=== PATIENT | female | born 1975 | race Caucasian/White ===

== ENCOUNTER 2022-10-02 05:42 | Emergency (ER) | payer SELFPAY ==
--- NOTE | ~2022-10-02 | XR_ITS ---
Right foot Technique: AP and lateral views were obtained. Clinical History: Pain Findings: No acute fracture or dislocation is seen. Osseous alignment is anatomic. Joint spaces are p reserved without erosive or degenerative change. Soft tissues are unremarkable. Impression: Unremarkable right foot radiographs. Reviewed, dictated and finalized at location . Impression: Unremarkable right foot radiographs.
[2022-10-02 05:48] VITALS: BP 107/71; PULSE 84; RESP 16; O2SAT 98
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
[2022-10-02] MEDS: ACETAMINOPHEN 500 MG TABLET 1000 MG PO (06:06)
== END 2022-10-02 06:37 | disposition home or self-care (01) ==
PROVIDERS: Emergency Provider Emergency Medicine
DX: S93.601A Unspecified sprain of right foot, initial encounter (principal); W22.8XXA Striking against or struck by other objects, initial encounter
CPT/HCPCS: 73620; 99283

== ENCOUNTER 2023-03-24 21:07 | Emergency (ER) | payer OTHER, SELFPAY ==
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
[2023-03-24 21:33] VITALS: BP 105/78; PULSE 97; RESP 16; TEMP 36.4; O2SAT 97
[2023-03-24 22:19] LABS: Influenza A QL RT-PCR Negative (Negative); Influenza B QL RT-PCR Negative (Negative); SARS-CoV-2 RNA PCR Negative (Negative)
[2023-03-24 22:21] LABS: RSV RNA, RT-PCR Negative (Negative)
[2023-03-24 22:39] VITALS: BP 105/78; PULSE 97; RESP 16; TEMP 36.4; O2SAT 97
== END 2023-03-24 22:40 | disposition home or self-care (01) ==
PROVIDERS: Emergency Provider Internal Medicine Critical Care Medicine; PCP Family Medicine
DX: S61.032A Puncture wound without foreign body of left thumb without damage to nail, initial encounter (principal); Z20.822 Contact with and (suspected) exposure to COVID-19; W26.0XXA Contact with knife, initial encounter
CPT/HCPCS: 12001; 87637; 99283

== ENCOUNTER 2024-05-06 11:57 | Emergency (ER) | payer OTHER, SELFPAY ==
[2024-05-06 11:59] VITALS: BP 144/86; PULSE 71; RESP 18; TEMP 36.6; O2SAT 99
[2024-05-06 12:02] VITALS: BP 144/86; PULSE 71; RESP 18; TEMP 36.6; O2SAT 99
--- NOTE | 2024-05-06 12:10 | ED.SKABFB ---
HPI - Skin/Abscess/Foreign Bdy General Chief complaint: Skin/Abscess/Foreign Body Stated complaint: rash on face area Time Seen by Provider: 05/06/24 12:03 Source: patient and family Mode of arrival: ambulatory Limitations: no limitations History of Present Illness HPI narrative: This is a 49-year-old female with history of hepatitis-C presents with some rash on her lower facial area around her mouth mainly on the left side erythematous with some vesicles currently no drainage does have some swollen tender left submandibular glands with some low-grade fever and chills with no shortness of breath no chest pain no not affecting the the eyes. complaint: rash Onset (ago): day(s) Location: face Severity: moderate Quality: aching Pain Consistency: constant Related Data Allergies Allergy/AdvReac Type Severity Reaction Status Date / Time ketorolac [From Toradol] Allergy Unknown Verified 05/06/24 12:01 tramadol Allergy Unknown Verified 03/24/23 21:33 Review of Systems Review of Systems: All systems reviewed & are unremarkable except as noted in HPI and below PMFSH Past Medical History Medical History Patient denies medical problems Surgical History Surgical History H/O section Social History Social History Social History: daily marijuana use Exam Const: General: healthy appearing and no acute distress Nutritional Appearance: well nourished Orientation/consciousness: patient oriented x3 Limitations: no limitations HENMT: Other: Has erythematous rash with vesicles on the left lower facial area Neck: Neck: normal visual inspection and lymphadenopathy Chest: Chest palpation & inspection: normal inspection of the chest Resp: Effort & Inspection: normal respiratory effort Auscultation: clear to auscultation bilaterally Cardio: Rate: regular rate Rhythm: regular rhythm Extrem: General: normal to inspection and no clubbing, cyanosis or edema Course Course Emergency Course: patient with what appears to be shingles and differential with some vesicles on erythematous base and will give a dose of acyclovir p.o. here in the emergency department send a persistent prescription to her pharmacy. Vital Signs Vital signs: Vital Signs Temperature 36.6 C 05/06/24 11:59 Pulse Rate 71 05/06/24 11:59 Respiratory Rate 18 05/06/24 11:59 Blood Pressure 144/86 H 05/06/24 11:59 Pulse Oximetry 99 05/06/24 11:59 Oxygen Delivery Room Air 05/06/24 11:59 Temperature 36.6 C 05/06/24 12:02 Pulse Rate 71 05/06/24 12:02 Respiratory Rate 18 05/06/24 12:02 Blood Pressure 144/86 H 05/06/24 12:02 Pulse Oximetry 99 05/06/24 12:02 Oxygen Delivery Room Air 05/06/24 12:02 Critical Care Time Critical Care Time Critical Care Time: No Discharge Plan Discharge Clinical Impression: Shingles Qualifiers: Herpes zoster complications: without complications Qualified Code(s): B02.9 - Zoster without complications Patient Disposition: Home, Self-Care Condition: Stable Instructions: Antibiotic Form, Shingles (ED) Additional Instructions: advised patient to take medication as prescribed and follow with primary within a week further evaluation and treatment. Prescriptions: New acyclovir 800 mg tablet 800 mg PO TID 7 Days Qty: 21 0RF Follow-up/Referrals: Neeraj Lozano M.D. [Primary Care Provider] - Time of Disposition: 12:14
[2024-05-06] MEDS: ACYCLOVIR 200 MG CAPSULE 400 MG PO (12:18)
== END 2024-05-06 12:22 | disposition home or self-care (01) ==
LOC: CHSED 12:14
PROVIDERS: Emergency Provider Emergency Medicine; PCP Family Medicine
DX: B02.9 Zoster without complications (principal)
CPT/HCPCS: 99283; A9270

== ENCOUNTER 2024-06-07 09:22 | Emergency (ER) | payer OTHER, SELFPAY ==
[2024-06-07 09:31] VITALS: BP 114/88; PULSE 110; RESP 20; TEMP 36.7; O2SAT 99
[2024-06-07 09:35] VITALS: RESP 20
--- NOTE | 2024-06-07 09:38 | ED.NEUROSD ---
HPI - Neuro Symptoms/Deficit General Chief Complaint: Overdose Stated Complaint: overdose/narcan given Source: patient and EMS Mode of arrival: ambulatory Limitations: no limitations History of Present Illness HPI Narrative: 39-year-old female with a history of methamphetamine and fentanyl abuse was brought in by EMS . she took her dose of fentanyl and amphetamine this morning and subsequently was noted to be unresponsive. Her friend gave her 3 doses of Narcan with improvement in mental status. The patient continued to have snoring respiration was altered mental status. Subsequently EMS was called who gave her IV Narcan following which she woke up without any neuro deficit. She is brought in by EMS for evaluation. Denies any focal deficit no chest pain or shortness of breath no nausea/vomiting /abdominal pain or diarrhea. Patient is afebrile. Onset (ago): hour(s) ( 1 hour ago) Last Observed Normal: 08:30 Timing confirmed by: other Location: other ( unresponsive) Relieving factors: none Context: sudden onset Associated symptoms: denies other symptoms Related Data Home Medications ?Medication ?Instructions ?Recorded ?Confirmed ?Last Taken ?Type No Home Medications 06/07/24 06/07/24 Unknown History Allergies Allergy/AdvReac Type Severity Reaction Status Date / Time ketorolac (From Toradol) Allergy Unknown Verified 06/07/24 09:32 tramadol Allergy Unknown Verified 06/07/24 09:32 Review of Systems Review of Systems: All systems reviewed & are unremarkable except as noted in HPI and below Constitutional: Constitutional: Reports as per HPI and Reports no additional constitutional complaints Eyes: Eyes: Reports as per HPI and Reports no additional eye complaints ENT: Reports system reviewed and no additional complaints, except as documented and Reports as per HPI Cardiovascular: Cardiovascular: Reports as per HPI and Reports no additional cardiovascular complaints Respiratory: Respiratory: Reports as per HPI and Reports no additional respiratory complaints Gastrointestinal: Gastrointestinal: Reports as per HPI and Reports no additional gastrointestinal complaints Genitourinary: Genitourinary: Reports no additional female genitourinary complaints and Reports as per HPI Musculoskeletal: Musculoskeletal: Reports no additional musculoskeletal complaints and Reports as per HPI Integumentary/Breasts: Skin/Breast: Reports system reviewed and no additional complaints, except as docu and Reports as per HPI Neurologic: Reports system reviewed and no additional complaints, except as documented and Reports as per HPI Comments: initially unresponsive. Currently she is alert and oriented without any focal deficits. Psychiatric: Psychiatric: Reports no additional psychiatric complaints Endocrine: Endocrine: Reports no additional endocrine complaints and Reports excessive sweating Hematologic/Lymphatic: Hematologic/Lymphatic: Reports no additional hematologic/lymphatic complaints and Reports as per HPI Allergic/Immunologic: Allergic/Immunologic: Reports no additional allergic/immunologic complaints and Reports as per HPI [facility] Past Medical History Medical History Patient denies medical problems Surgical History Surgical History H/O section Social History Social History (Updated 06/07/24 @ 09:50 by Jordan Joe MD) Social History: daily marijuana use. History of fentanyl and amphetamine abuse Substance use type: former substance user, opiates and methamphetamine Exam Narrative: tachycardic with a heart rate of 110. Blood pressure 114/88 Const: General: no acute distress Orientation/consciousness: patient oriented x3 Limitations: no limitations HENMT: Head: normal to inspection Ears: external ears normal Face/Nose/Sinus: Normal external nose present Face and sinus: normal facial exam Teeth and gingiva: abnormal tooth and associated gingiva ( extensive dental caries with gingivitis on the right lower) Throat: posterior oropharynx normal Eyes: Conjunctivae: conjunctivae normal Pupils: Equal, round and reactive pupils present EOM: EOMs intact bilaterally Direct Ophthalmoscopy: no photophobia Neck: Neck: normal visual inspection, no lymphadenopathy and no meningeal signs Chest: Chest palpation & inspection: normal inspection of the chest Resp: Effort & Inspection: normal respiratory effort Auscultation: clear to auscultation bilaterally Cardio: Rate: regular rate Rhythm: regular rhythm GI: GI Palp: Yes Soft to palpation Auscultation: normal bowel sounds Other: no tenderness / rigidity /rebound : General: Yes no CVA tenderness Back/Spine/Pelvis: Back: no CVA tenderness Skin: General skin exam: normal color Rashes: no rashes Wounds: no wounds Neuro: General: patient oriented x3, moves all extremities, no meningeal signs, no focal motor deficits and CN's II-XI intact bilaterally Cranial nerves: Yes Nystagmus not present Speech: normal speech Extrem: General: normal to inspection, no clubbing, cyanosis or edema and no pedal edema Psych: Mental Status: mental status grossly normal Affect: normal affect Attitude: cooperative Course Course Emergency Course: accidental overdosage unresponsiveness currently no focal neuro deficit. patient refused blood work and CT of the head. Will watch her in the ED for any residual effects. Vital Signs Vital signs: Vital Signs Temperature 36.7 C 06/07/24 09:31 Pulse Rate 110 H 06/07/24 09:31 Respiratory Rate 20 06/07/24 09:31 Blood Pressure 114/88 06/07/24 09:31 Pulse Oximetry 99 06/07/24 09:31 Oxygen Delivery Room Air 06/07/24 09:31 Temperature 37.0 C 06/07/24 10:15 Pulse Rate 91 06/07/24 10:15 Respiratory Rate 20 06/07/24 10:15 Blood Pressure 122/63 06/07/24 10:15 Pulse Oximetry 97 06/07/24 10:15 Oxygen Delivery Room Air 06/07/24 10:15 MDM - Neuro Symptoms/Deficit MDM Narrative Medical decision making narrative: Accidental overdoseage of fentanyl and amphetamine Differential Diagnosis Differential diagnosis: Likely delirium and cerebrovascular accident Discharge Plan Discharge Clinical Impression: Amphetamine abuse, Fentanyl use disorder, mild, abuse Accidental drug ingestion Qualifiers: Encounter type: initial encounter Qualified Code(s): T50.901A - Poisoning by unspecified drugs, medicaments and biological substances, accidental (unintentional), initial encounter Patient Disposition: Home, Self-Care Condition: Stable Instructions: Antibiotic Form, Adult Overdose (ED), Narcotic Use Disorder (ED) Patient Language: Divehi Prescriptions: No Action No Home Medications Follow-up/Referrals: Neeraj Lozano M.D. [Primary Care Provider] - Time of Disposition: 11:
[2024-06-07 10:15] VITALS: BP 122/63; PULSE 91; RESP 20; TEMP 37; O2SAT 97
[2024-06-07 11:19] VITALS: BP 111/89; PULSE 80; RESP 18; TEMP 36.6; O2SAT 99
== END 2024-06-07 11:20 | disposition home or self-care (01) ==
PROVIDERS: Emergency Provider Internal Medicine Critical Care Medicine; PCP Family Medicine
DX: T40.411A Poisoning by fentanyl or fentanyl analogs, accidental (unintentional), initial encounter (principal); T43.621A Poisoning by amphetamines, accidental (unintentional), initial encounter; F15.10 Other stimulant abuse, uncomplicated; F11.99 Opioid use, unspecified with unspecified opioid-induced disorder
CPT/HCPCS: 99281

== ENCOUNTER 2025-02-02 23:28 | Emergency (ER) | payer OTHER, SELFPAY ==
--- NOTE | ~2025-02-02 | XR_ITS ---
EXAMINATION: XR chest 2V DATE: 02/03/2025 00:07 INDICATION: Shortness of breath TECHNIQUE: PA and lateral views of the chest were obtained. COMPARISON: None FINDINGS: Mild streaky lingular atelectasis at the left costophrenic angle. No other airspace opacities, pulmonary edema, pleural effusion or pneumothorax. The cardiomediastinal silhouette is normal. Visualized bones and soft tissues are unremarkable. IMPRESSION: 1. Mild streaky lingular atelectasis. Reviewed, dictated and finalized at location A.
[2025-02-02 23:28] VITALS: BP 152/84; PULSE 93; RESP 18; TEMP 36.6; O2SAT 100
--- NOTE | 2025-02-02 23:29 | ED.SOB ---
HPI - SOB/Dyspnea General Chief Complaint: Upper Respiratory Infection Stated Complaint: SOB Time Seen by Provider: 02/02/25 23:29 Source: patient Mode of arrival: ambulatory Limitations: no limitations History of Present Illness HPI Narrative: Patient is a 49-year-old female with sedation sensation and dizziness for the past few hours. She is feeling short of breath. She was out having a few drinks with her girlfriend this evening. She was having some drugs this evening per history but not sure what drugs. She has a past history of meth abuse and opioid abuse. Anxiety. MD elicited complaint: shortness of breath Pertinent past history: other ( Illicit drug use and dependency issues) Onset (ago): hour(s) ( 2-3) Context: anxiety and other ( patient has a sedated and short of breath sensation with some dizziness this evening after possibly ingesting some illicit drugs and having a few drinks with her friends) Timing: constant Severity: moderate Exacerbating factors: other ( she feels anxious about this event) Relieving factors: nothing Known history of: other ( illicit drug use) Associated symptoms: syncope ( near syncope sensation) and other ( short of breath) Treatment prior to arrival: none Related Data Home oxygen amount: none Home Medications ?Medication ?Instructions ?Recorded ?Confirmed ?Last Taken ?Type No Home Medications 06/07/24 06/07/24 Unknown History Allergies Allergy/AdvReac Type Severity Reaction Status Date / Time ketorolac (From Toradol) Allergy Unknown Verified 06/07/24 09:32 tramadol Allergy Unknown Verified 06/07/24 09:32 Review of Systems Review of Systems: All systems reviewed & are unremarkable except as noted in HPI and below Constitutional: Constitutional: Reports no additional constitutional complaints Eyes: Eyes: Reports no additional eye complaints ENT: Reports system reviewed and no additional complaints, except as documented Cardiovascular: Cardiovascular: Reports no additional cardiovascular complaints Respiratory: Respiratory: Reports no additional respiratory complaints Gastrointestinal: Gastrointestinal: Reports no additional gastrointestinal complaints Genitourinary: Genitourinary: Reports no additional female genitourinary complaints Musculoskeletal: Musculoskeletal: Reports no additional musculoskeletal complaints Integumentary/Breasts: Skin/Breast: Reports system reviewed and no additional complaints, except as docu Neurologic: Reports system reviewed and no additional complaints, except as documented Psychiatric: Psychiatric: Reports no additional psychiatric complaints Endocrine: Endocrine: Reports no additional endocrine complaints Hematologic/Lymphatic: Hematologic/Lymphatic: Reports no additional hematologic/lymphatic complaints Allergic/Immunologic: Allergic/Immunologic: Reports no additional allergic/immunologic complaints PMFSH Past Medical History Medical History Patient denies medical problems Surgical History Surgical History H/O section Social History Social History Social History: daily marijuana use. History of fentanyl and amphetamine abuse Substance use type: former substance user, opiates and methamphetamine Exam Const: General: ill appearing ( patient is intoxicated with some substance at this time and sedated) acutely Nutritional Appearance: well nourished Orientation/consciousness: patient oriented x3 Limitations: no limitations HENMT: Head: normal to inspection Ears: external ears normal Face/Nose/Sinus: Normal external nose present Eyes: Conjunctivae: conjunctivae normal Pupils: Equal, round and reactive pupils present EOM: EOMs intact bilaterally Neck: Neck: normal visual inspection Chest: Chest palpation & inspection: normal inspection of the chest Resp: Effort & Inspection: normal respiratory effort and not labored Auscultation: clear to auscultation bilaterally and no crackles Cardio: Rate: regular rate Rhythm: regular rhythm Heart sounds: no murmurs GI: Inspection: non-distended GI Palp: Yes Soft to palpation and Yes Tenderness to palpation present (GI) Auscultation: normal bowel sounds : General: Yes bladder normal to palpation Back/Spine/Pelvis: Back: no CVA tenderness Skin: General skin exam: normal color Rashes: no rashes Wounds: no wounds Neuro: General: patient oriented x3, moves all extremities, no meningeal signs, no focal motor deficits and CN's II-XI intact bilaterally Cranial nerves: Yes Nystagmus not present Speech: normal speech Gait exam (Neuro): Normal gait present Other: Fast exam is negative, NIH is 0, GCS is 15 Extrem: General: normal to inspection Psych: Mental Status: mental status grossly normal Affect: normal affect Attitude: cooperative Course Vital Signs Vital signs: Vital Signs Temperature 36.6 C 02/02/25 23:28 Pulse Rate 93 02/02/25 23:28 Respiratory Rate 18 02/02/25 23:28 Blood Pressure 152/84 H 02/02/25 23:28 Pulse Oximetry 100 02/02/25 23:28 Oxygen Delivery Room Air 02/02/25 23:28 Temperature 36.6 C 02/02/25 23:28 Pulse Rate 75 02/03/25 00:06 Respiratory Rate 9 L 02/03/25 00:06 Blood Pressure 110/90 02/03/25 00:06 Pulse Oximetry 96 02/03/25 00:06 Oxygen Delivery Room Air 02/03/25 00:06 MDM - SOB/Dyspnea MDM Narrative Medical decision making narrative: patient is a 49-year-old female with some sort of drug intoxication this evening and feeling sedated with dizziness and short of breath. We will do a workup at this time. Patient said she was leaving AMA at this time due to the fact that concerns that she may get Narcan given to her for some sedation and shortness of breath. Her chart says that she had a fentanyl and a methamphetamine disorder in the past. Patient was AAO x4 on the way out the door and made clear sense to me and the staff. She had decision-making capacity at the time to walk out AMA. Risks and benefits were reviewed. Lab Data Attestation: I reviewed the patient's lab results. Labs: Lab Results 02/02/25 02/02/25 Range/Units 23:39 23:57 Urine Color Pending Urine Appearance Pending Urine pH Pending Ur Specific [place] Pending Urine Protein Pending Urine Glucose (UA) Pending Urine Ketones Pending Ur Blood (Man) Pending Urine Nitrate Pending Urine Bilirubin Pending Urine Urobilinogen Pending Leukocyte Esterase Rfl Pending Urine Opiates Screen Pending Urine Methadone Screen Pending Ur Barbiturates Screen Pending Ur Phencyclidine Scrn Pending Ur Amphetamine Screen Pending U Benzodiazepines Scrn Pending Urine Cocaine Screen Pending U Cannabinoids Screen Pending Influenza A (RT-PCR) Pending Influenza B (RT-PCR) Pending RSV (RT-PCR) Pending SARS-CoV-2 RNA (RT-PCR) Pending Imaging Data Attestation: I personally reviewed and interpreted this imaging study as follows: ECG Data EKG #1: Attestation: I personally reviewed and interpreted this ECG as follows: ECG completion date: 02/02/25 ECG completion time: 23:50 EKG Interpretation: normal rate, sinus rhythm, no ectopy, no ST changes, normal QRS, normal QT, NL axis and no acute changes Discharge Plan Discharge Clinical Impression: Shortness of breath Patient Disposition: Left Against Medical Advice Condition: Stable Patient Language: Citizen Of [place] Prescriptions: No Action No Home Medications Follow-up/Referrals: Dileep Trevino MD [Primary Care Provider, Internal Medicine] Time of Disposition: 01:09
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
--- OUTSIDE RECORDS SUMMARY | 2025-02-02 23:31 | XMS_ITS | Clinical Summary ---
Author Organization [facility] Address [address] [place] [address] Care Team Providers Care Supervisor [employer] Name Role Phone Judit Arce Unavailable Unavailable No, Physician Primary Care Provider [phone] Allergies No known active allergies Medications buprenorphine-na loxone (SUBOXONE) 4-1 mg per filmIndications: opioid use disorder Place 1 Film under the tongue 2 (two) times a day 4 Film 12/16/2022 Active Active Problems Problem Noted Date Diagnosed Date Acute cystitis without hematuria 02/06/2021 Opioid dependence with withdrawal 02/05/2021 Assessment & Plan (02/05/2021 10:56 PM CDT): Patient actively withdrawing. She is very restless and agitated. She was started on Suboxone, may need to increase dose of Suboxone as patient uses 10-12 fentanyl beings daily. Continue with supportive care. Methamphetamine abuse 02/05/2021 Assessment & Plan (02/05/2021 10:54 PM CDT): Will add p.r.n. Ativan Tobacco use 02/05/2021 Assessment & Plan (02/05/2021 10:55 PM CDT): Patient states she smokes 3 cigarettes a day currently. Will order nicotine patch if patient would like. HCV infection 02/05/2021 Assessment & Plan (02/05/2021 10:55 PM CDT): Patient has a history of IV drug use but no longer uses IV drugs. Bipolar depression 02/05/2021 Assessment & Plan (02/05/2021 10:55 PM CDT): Patient states she does not take any medications for this Surgical History Surgery Date Site/Laterality Comments SECTION MANDIBLE SURGERY Medical History Medical History Date Comments Hepatitis C 2019 Family History Medical History Relation Name Comments Diabetes Brother COPD Father Diabetes Father Heart disease Father Hypertension Father Relation Name Status Comments Brother Alive Father Alive Mother Social History Tobacco Use Types Packs/Day Years Used Date Smoking Tobacco: Every Day Cigarettes 0.1 30 Smokeless Tobacco: Never Tobacco Cessation:Ready to Q uit: No; Counseling Given: Yes Comments:not ready just yet Personal Safety Answer Date Recorded Getting School Help Needed Not on file 12/17 Comments Unknown Sex and Gender Information Value Date Recorded Sex Assigned at Not on file Legal Sex Female 7:41 AM CDT Gender Identity Not on file Sexual Orientation Not on file Obstetrics History Last Filed Vital Signs Vital Sign Reading Time Taken Comments Blood Pressure 102/77 12/16/2022 12:04 PM CDT Pulse 73 12/16/2022 12:04 PM CDT Temperature 36.8 C (98.3 F) 12/16/2022 8:46 AM CDT Respiratory Rate 17 12/16/2022 12:04 PM CDT Oxygen Saturation 99% 12/16/2022 12:04 PM CDT Inhaled Oxygen Concentration - - Weight 54.4 kg (120 lb) 12/16/2022 8:46 AM CDT Height 165.1 cm (5' 5) 12/16/2022 8:46 AM CDT Body Mass Index 19.97 12/16/2022 8:46 AM CDT Plan of Treatment Health Maintenance Due Date Last Done Comments Breast Cancer Screening-Mammogram 1976 Cervical Cancer Screening 1976 Colon Cancer Screening-Colonoscopy 1976 Depression Screening 1976 DTaP/Tdap/Td Vaccine (1 - Tdap) 1987 Hepatitis B Screening 1994 Regular Well Visit/Exam 18-64 1994 Pneumococcal vaccine <65 (1 of 2 - PCV) 1995 Influenza Vaccine (#1) 2025 Hepatitis C Screening Completed 02/05/2021 Goals Goal Patient Goal Type Associated Problems Recent Progress Patient-Stated? Author Medical detox to address PREM/opioid withdrawal. General No Judit Arce Note: Pt will attend 3-5 days detox. Improve your coping skills Lifestyle No Judit Arce Note: Attend IOP in [place] at [facility]. Insurance [employer] [facility] [employer] [facility] Advance Directives For more information, please contact: [phone] * Full Code (Latest Code Status on File) Date Activated Date Inactivated Comments 02/05/2021 3:01 PM 02/07/2021 10:44 PM Care Teams Supervisor [employer] Relationship Specialty Start Date End Date No, Physician PCP - General 02/05/21 Judit Arce Staple Laster Addiction Medicine 02/05/21
--- OUTSIDE RECORDS SUMMARY | 2025-02-02 23:31 | XMS_ITS | Encounter Summary ---
Author Organization [facility] Address [address] [place] [id number] Care Team Providers Care Radio Announcer Name Role Phone None, Provider Primary Care Provider Unavaila ble Encounter Details Date Type Department Care Team (Late st Contact Info) Description 11/05/2018 Abstract SFL CONVERSION [address] [place] [address] , Generic Conversion, Social History Tobacco Use Types Packs/Day Years Used Date Smoking Tobacco: Never Assessed Comments Unknown Sex and Gender Information Value Date Recorded Sex Assigned at Not on file Legal Sex Female 6:32 PM CDT Gender Identity Not on file Sexual Orientation Straight 02/21/2022 12 :05 AM CDT documented as of this encounter Plan of Treatment Not on file documented as of this encounter Visit Diagnoses Not on filedocumented in this encounter Care Teams Radio Announcer Relationship Specialty Start Date End Date None, Provider, PCP - General 11/17/18 documented as of this encounter
--- NOTE | 2025-02-02 23:45 | PC.NURSE ---
PATIENT IS VERY SLEEPY BUT IS ABLE TO WALK DOWN TO THE BATHROOM TO GIVE URINE SAMPLE. LORAINE JACQUES, WALKING WITH PATIENT TO THE BATHROOM. WILL PLACE ON BASEBALL INSPECTOR AND REPAIRER WHEN RETURNED TO THE ROOM
[2025-02-02 23:50] VITALS: BP 127/83; PULSE 82; RESP 17; O2SAT 100
--- NOTE | 2025-02-02 23:51 | ECG_ITS ---
Test Date: 2025-02-03 00:12:12 Measurements Intervals [place] Rate: 81 P: 69 [place]: 147 QRS: 32 QRSD: 98 T: 41 QT: 369 QTc: 430 Interpretive Statements SINUS RHYTHM POSSIBLE LEFT ATRIAL ENLARGEMENT [-0.1mV P-WAVE IN V1/V2] No previous ECG available for comparison Electronically Signed On 02-05-2025 10:29:57 CDT by Salas Cuellar M.D.
[2025-02-02 23:52] VITALS: BP 127/83; PULSE 73; RESP 16; O2SAT 99
--- NOTE | 2025-02-02 23:56 | PC.NURSE ---
NOTIFIED ALEXANDRO WITH LAB OF NEW ORDERS
[2025-02-03 00:06] VITALS: BP 110/90; PULSE 75; RESP 9; O2SAT 96
--- NOTE | 2025-02-03 00:09 | PC.NURSE ---
LORAINE JACQUES, AT THE BEDSIDE WITH EKG MACHINE
--- NOTE | 2025-02-03 00:14 | PC.NURSE ---
LAB AT THE BEDSIDE
[2025-02-03 00:15] VITALS: BP 108/79; PULSE 77; RESP 12; O2SAT 100
--- NOTE | 2025-02-03 00:15 | PC.NURSE ---
PATIENT GOT ANGRY. STATES I HEARD YOU TALKING ABOUT NARCAN. I AM GOING HOME. THIS RN WAS IN ANOTHER PATIENTS ROOM PATIENT IS WALKING OUT OF THE DEPARTMENT. PATIENT DID NOT HAVE AN IV ESTABLISHED.
== END 2025-02-03 00:15 | disposition left against medical advice (07) ==
PROVIDERS: Emergency Provider Emergency Medicine; PCP Family Medicine
DX: R06.02 Shortness of breath (principal)
CPT/HCPCS: 71046; 80307; 81003; 87637; 93005; 99283